=== PATIENT | female | born 1965 | race Caucasian/White ===

== ENCOUNTER 2020-02-03 10:38 | Emergency (ER) | payer OTHER, SELFPAY ==
[2020-02-03] VITALS (21 sets, daily range): BP systolic 148–191; BP diastolic 69–128; PULSE 78–97; RESP 10–27; TEMP 36.5; O2SAT 97–100
--- NOTE | 2020-02-03 10:45 | DI.RAD_ITS ---
EXAM: XR PORTABLE CHEST AP CLINICAL HISTORY: sob, cough, r/o pneumonia TECHNIQUE: 2D digital imaging was performed. COMPARISON: No exams were available for comparison FINDINGS: LUNGS: Clear. No pleural abnormality seen. No rib fracture or pneumothorax is seen. HEART: Normal. MEDIASTINUM: Normal. EKG leads overlie the chest IMPRESSION: Negative portable chest.
--- NOTE | 2020-02-03 10:58 | ED.GENADUL_ITS ---
Discharge Plan Disposition Patient Disposition: HOME Condition: Good Discharge Details Chief Complaint: SOB Clinical Impression: Bronchitis Primary Care Provider: None,None ED Provider: Greg Venegas Home Meds and New Rx's Prescriptions: Continued methocarbamol 500 mg Tablet 500 mg PO QID PRNRF: 0 bupropion HCl [Wellbutrin SR] 150 mg Tablet Sustained-Release 12 Hr 150 mg PO BID RF: 0 trazodone 50 mg Tablet 50 mg PO DAILY RF: 0 sumatriptan succinate [Imitrex] 50 mg Tablet 50 mg PO BID PRN PRNRF: 0 estradiol 1 mg Tablet 1 mg PO DAILY RF: 0 gabapentin 300 mg Capsule 300 mg PO TID RF: 0 fluticasone propionate [Flonase Allergy Relief] 50 mcg/actuation [place],Suspension 2 spray INTRANASAL BID RF: 0 prazosin 2 mg Capsule 2 mg PO QHS RF: 0 hydroxyzine pamoate [Vistaril] 25 mg Capsule 25 mg PO QID PRNRF: 0 duloxetine [Cymbalta] 60 mg Capsule,Delayed Release(Dr/Ec) 60 mg PO BID RF: 0 lidocaine 5 % Gel RF: 0 Discharge Instructions Instructions: Acute Bronchitis (ED) Additional Instructions: At this time your chest x-ray shows no evidence of pneumonia. I do suspect you have mild bronchitis. Please use the inhaler, 2 puffs every 4-6 hours as needed. You will be contacted if your coronavirus results are positive. These results will likely be back in the next 24 to 48 hours. Please get plenty of rest, drink plenty of fluids. If you notice any worsening of your symptoms, or any new symptoms such as vomiting, diarrhea, fever, chills, shortness of breath, chest pain, numbness, weakness, or fainting , please return immediately to the emergency department for reevaluation. Please follow up with your primary care provider as soon as possible for reassessment and reevaluation. As always, it was a pleasure participating in your medical care today. Medical Decision Making 54-year-old female with a past medical history of reflex sympathetic dystrophy, anxiety, PTSD, who is been traveling for the last 2 months, originally coming from [place]. She presents today for chest pain shortness of breath cough. Symptoms have been present for the last 10 days, however notably worse in the last 3 days. Chest pain is pleuritic in nature, and she feels congested in her chest. Mildly productive cough, but no hemoptysis. No chest tightness, she admits to occasional chills but no fever. She denies any leg swelling or calf pain. She has been spending notable amounts of time in her car as a been sleeping in their car, and have not been able to find a hotel or bed and breakfast recently secondary to the coronavirus pandemic. They deny any direct contact to coronavirus patients, however they have been traveling a significant amount, and coming in contact with multiple different places and people. Patient denies any other focal complaints. She does state that she has chronic tingling in the left side of her body secondary to the reflex sympathetic dystrophy. She denies any acute changes in regards to this. She is not on any control or blood thinners. She denies any other complaints at this time. No other modifying factors. She denies any history of cardiac d isease or family history of cardiac disease. Physical exam demonstrates no focal neurologic deficits that are acute. Lung sounds appear to be clear in the negative pressure room with notable auditory obstruction. No significant calf tenderness, no unilateral lower extremity swelling. Differential is broad, but with bronchitis, pneumonia, PE and cardiac etiology. COVID is certainly on the differential with her travel, and contacts in certain living scenario. We will monitor closely, evaluate for these concerning etiologies and reassess. 12:59 PM Patient's work-up is notably benign. No white count, bandemia or left shift, no thrombocytopenia or lymphopenia. No leukopenia. Coagulation studies are normal, d-dimer is well within normal limits. Electrolytes are normal, renal function stable, troponin normal. Symptoms have been notably greater than 24 hours no indication for repeat. EKG is on remarkable no evidence of STEMI. Symptoms are inconsistent with ACS. TSH normal. Flu negative. Pending COVID testing. Patient is feeling much better and would like to go home. Signs and symptoms consistent with mild viral bronchitis. Even if the patient does have COVID she is not a candidate for admission with no hypoxemia, significant shortness of breath, or concerning symptoms on lung x-ray. We will give an albuterol inhaler and spacer for home use, discussed red flags for which to return. At this time patient is clinically inconsistent with a life-threatening etiology and is stable for discharge. I have extensively reviewed the treatment plan and discharge instructions with the patient and their family. I have addressed all patient concerns at this time. The patient and family was made aware of what symptoms to monitor for that would warrant a return to the emergency department. Discussed the plan with the patient and family, they demonstrate verbal understanding and agreement with our assessment and plan at this time. EKG 10: 56 Rate 81, sinus rhythm, intervals normal, no significant ST elevations or depressions, no significant T wave inversions, there is a T wave inversion in V1 though. No significant Q waves. T waves do not appear jarvis to the Prieto T waves, Brugada syndrome, or Wellens syndrome. FINDINGS: LUNGS: Clear. No pleural abnormality seen. No rib fracture or pneumothorax is seen. HEART: Normal. MEDIASTINUM: Normal. EKG leads overlie the chest IMPRESSION: Negative portable chest. HPI General Date/Time Provider Initiated Documentation: 02/03/20 10:39 . HPI Narrative: 54-year-old female with a past medical history of reflex sympathetic dystrophy, anxiety, PTSD, who is been traveling for the last 2 months, originally coming from [place]. She presents today for chest pain shortness of breath cough. Symptoms have been present for the last 10 days, however notably worse in the last 3 days. Chest pain is pleuritic in nature, and she feels congested in her chest. Mildly productive cough, but no hemoptysis. No chest tightness, she admits to occasional chills but no fever. She denies any leg swelling or calf pain. She has been spending notable amounts of time in her car as a been sleeping in their car, and have not been able to find a hotel or bed and breakfast recently secondary to the coronavirus pandemic. They deny any direct contact to coronavirus patients, however they have been traveling a significant amount, and coming in contact with multiple different places and people. Patient denies any other focal complaints. She does state that she has chronic tingling in the left side of her body secondary to the reflex sympathetic dystrophy. She denies any acute changes in regards to this. She is not on any control or blood thinners. She denies any other complaints at this time. No other modifying factors. She denies any history of cardiac disease or family history of cardiac disease. Related Data Home Medications Medication Instructions Recorded Confirmed bupropion HCl [Wellbutrin SR] 150 mg PO BID 02/03/20 02/03/20 duloxetine [Cymbalta] 60 mg PO BID 02/03/20 02/03/20 estradiol 1 mg PO DAILY 02/03/20 02/03/20 fluticasone propionate [Flonase 2 spray INTRANASAL BID 02/03/20 02/03/20 Allergy Relief] gabapentin 300 mg PO TID 02/03/20 02/03/20 hydroxyzine pamoate [Vistaril] 25 mg PO QID PRN 02/03/20 02/03/20 lidocaine % 02/03/20 methocarbamol 500 mg PO QID PRN 02/03/20 02/03/20 prazosin 2 mg PO QHS 02/03/20 02/03/20 sumatriptan succinate [Imitrex] 50 mg PO BID PRN PRN 02/03/20 02/03/20 trazodone 50 mg PO DAILY 02/03/20 02/03/20 Allergies Allergy/AdvReac Type Severity Reaction Status Date / Time cephalexin [From Keflex] Allergy Anaphylaxsi Unverified 02/03/20 10:51 s tetracycline Allergy Anaphylaxsi Unverified 02/03/20 10:51 s codeine AdvReac Nausea Unverified 02/03/20 10:51 General Stated Complaint: SOB JENNIFER: 2 Review of Systems All systems reviewed & are unremarkable except as noted in HPI and below PFSH Social History Smoking/Tobacco Use Status: Never Alcohol Intake: current Alcohol Intake frequency: 0-2 drinks per day Alcohol type: wine Drug use: Never Do you feel safe at home: Yes Do you feel safe in your relationship?: Yes Exam Narrative Exam Narrative: 1.Const: Well-nourished, Well-developed, appearing stated age 2.Eyes: PERRL, no conjunctival injection, and symmetrical lids. 3.ENT: Atraumatic external nose and ears. Moist MM. Neck: Symmetric, trachea midline, No thyromegaly. 4.CVS: +S1/S2, No murmurs or gallops. Peripheral pulses 2+ and equal in all extremities. Brisk capillary refill in all extremities. 5.RESP: Unlabored respiratory effort. Clear to auscultation bilaterally. No wheezes rales or rhonchi 6.GI: Soft, Nontender/Nondistended, No hepatosplenomegaly. No guarding or rebound. 7.MSK: Normocephalic/Atraumatic, Extremities w/o deformity or ttp No cyanosis or clubbing, Normal movement of all extremities. No calf tenderness. 8.Skin: Warm, Dry. No rashes or lesions. 9.Neuro: measuring clerk II-XII grossly intact. Sensation grossly intact, no focal neurologic deficits. 10.Psych: (AAO) x3. Appropriate mood and affect Course Vital Signs Vital signs: Vital Signs Temperature 36.5 C 02/03/20 10:52 Pulse 81 02/03/20 10:52 Respiratory Rate 15 02/03/20 10:52 Blood Pressure 191/111 H 02/03/20 10:52 Pulse Oximetry 100 02/03/20 10:52 Temperature 36.5 C 02/03/20 10:52 Temperature Source Temporal Artery Scan 02/03/20 10:52 Pulse 81 02/03/20 10:52 Respiratory Rate 15 02/03/20 10:52 Blood Pressure 191/111 H 02/03/20 10:52 Blood Pressure Position Supine 02/03/20 10:52 Pulse Oximetry 100 02/03/20 10:52 Oxygen Delivery Method Room Air 02/03/20 10:52 Oxygen Flow Rate 0 02/03/20 10:52 Pain Level 10 02/03/20 10:52
[2020-02-03 11:33] LABS: Absolute Basophil Count 0.03 k/cumm (0.0-0.2); Absolute Eosinophil Count 0.05 k/cumm (0.0-0.7); Absolute Lymphocyte Count 1.81 k/cumm (1.2-3.4); Absolute Monocyte Count 0.41 k/cumm (0.11-0.7); Absolute Neutrophil Count 2.37 k/cumm (1.2-6.7); Basophils % 0.6; Eosinophils % 1.1; HCT 44.9 % (36.0-46.0); HGB 15.3 g/dL (12.0-15.5); Lymphocytes % 38.8; Mean Corp. HGB Concentration 34.1 g/dL (32.0-36.0); Mean Corpuscular Hemoglobin 30.1 pg (27.0-33.0); Mean Corpuscular Volume 88.4 fL (80-95); Mean Platelet Volume 10.3 fL (8.0-11.0); Monocytes % 8.8; Neutrophils % 50.7; Platelet Count 251 x1000/uL (130-400); RBC 5.08 m/cumm (4.00-5.20); RBC Distribution Width 12.9 % (11.7-14.6); White Blood Cell Count 4.67 k/cumm (4.4-10.8)
[2020-02-03 11:46] LABS: PTT Activated 24.7 sec (21.0-31.4); Prothrombin Time 10.4 sec (9.3-11.0)
[2020-02-03 11:49] LABS: ALT 29 U/L (14-59); AST 16 U/L (15-37); Albumin 4.4 g/dL (3.4-5.0); Alkaline Phosphatase 73 U/L (46-116); Anion Gap 8.9 mmol/L (3-11); BUN 9 mg/dL (7-18); Bilirubin, Total 0.6 mg/dL (0.2-1.0); CO2 28.1 mmol/L (21.0-32.0); CREATININE 0.66 mg/dL (0.55-1.02); Calcium 9.3 mg/dL (8.5-10.1); Chloride 103 mmol/L (98-107); Glucose 107 mg/dL (74-106); NT-proBNP 99 pg/mL (<300); Potassium 3.6 mmol/L (3.5-5.1); Sodium 140 mmol/L (136-145); Total Protein 7.3 g/dL (6.4-8.2)
[2020-02-03 11:57] LABS: TSH (W/Ref FT4) 0.57 uIU/mL (0.36-3.74)
--- NOTE | 2020-02-03 11:59 | NUR.NOTE ---
pt provided with hot meal tray Nursing Note:
[2020-02-03 12:02] LABS: D-Dimer 225 ng/mlFEU (<500)
[2020-02-03 12:04] LABS: Troponin I < 0.05 ng/Ml (<0.06)
[2020-02-04 19:53] LABS: COVID-19 RT-PCR UVMMC Result Negative (Negative)
== END 2020-02-03 12:55 | disposition home or self-care (01) ==
PROVIDERS: Emergency Provider Student in an Organized Health Care Education/Training Program
DX: J40 Bronchitis, not specified as acute or chronic (principal); R07.89 Other chest pain
CPT/HCPCS: 80053; 87449; 93005; 99284; U0003; 71045; 83880; 84443; 84484; 85025; 85379; 85610; 85730; 93010